=== PATIENT | male | born 1950 | race Caucasian/White ===

== ENCOUNTER 2018-09-15 13:08 | Day surgery (SDC) | payer OTHER ==
[~2018-09-15] VITALS: Ht 162.6 cm; Wt 101.2 kg
[~2018-09-15 13:08] MED LIST: ASPI81CH PO; ATOR40TA PO; Aspirin EC81 MG PO; LISI5 PO; METO100ER PO; MULTI VITAMIN1 EACH PO; Metoprolol Tar100 MG PO; PANT40 PO; TICA90TA PO
--- NOTE | 2018-09-15 14:53 | NUR ---
09/15/18 1453 Brenda Case LATE ENTRY PT UPDATED REGARDING THE DELAY IN HIS CASE. CALL LIGHT IN REACH. WARM BLANKETS PROVIDED.
== END 2018-09-15 16:18 | disposition home or self-care (01) ==
LOC: ORSCSDS 13:08
PROVIDERS: Internal Medicine Gastroenterology
PROC: 3E0H8GC Introduction of Other Therapeutic Substance into Lower GI, Via Natural or Artificial Opening Endoscopic (ICD-10-PCS; principal; 2018-09-15 14:30)
PROC: 0DB68ZX Excision of Stomach, Via Natural or Artificial Opening Endoscopic, Diagnostic (ICD-10-PCS; principal; 2018-09-15 14:30)
DX: K62.5 Hemorrhage of anus and rectum (principal); R19.5 Other fecal abnormalities; K21.9 Gastro-esophageal reflux disease without esophagitis; K57.30 Diverticulosis of large intestine without perforation or abscess without bleeding; K22.2 Esophageal obstruction; K44.9 Diaphragmatic hernia without obstruction or gangrene; I25.2 Old myocardial infarction; E66.01 Morbid (severe) obesity due to excess calories; Z68.41 Body mass index [BMI] 40.0-44.9, adult; Z87.891 Personal history of nicotine dependence; Z79.899 Other long term (current) drug therapy; Z79.82 Long term (current) use of aspirin
CPT/HCPCS: 87081; J7120